=== PATIENT | male | born 1975 | race Caucasian/White ===

== ENCOUNTER 2018-02-02 09:03 | Emergency (ER) | payer SELFPAY ==
[~2018-02-02] VITALS: Ht 182.9 cm; Wt 105.8 kg
[2018-02-02 09:12] VITALS: Ht 182.9 cm; Wt 105.8 kg
[2018-02-02 11:28] VITALS: BP 168/95
== END 2018-02-02 11:28 | disposition home or self-care (01) ==
LOC: ED 09:03
DX: R59.1 Generalized enlarged lymph nodes (principal); L03.116 Cellulitis of left lower limb